=== PATIENT | female | born 1955 | race Caucasian/White ===

== ENCOUNTER 2021-12-03 09:48 | Outpatient (CLI) | payer BC, SELFPAY ==
[2021-12-03 10:00] LABS: Albumin* 4.2 g/dL (3.3-5.0)
[2021-12-03 10:01] LABS: Chloride* 106 mmol/L (96-114); Potassium* 4.2 mmol/L (3.6-5.1); Sodium* 140 mmol/L (135-149)
[2021-12-03 10:03] LABS: Bilirubin Total* 1.2 mg/dL (0.1-1.5); Carbon Dioxide* 30 mmol/L (20-32); Cholesterol* 170 mg/dL (90-199); Creatinine* 0.7 mg/dL (0.5-1.5); Estimated Glomerular Filt Rate 97 ml/min
[2021-12-03 10:04] LABS: Alanine Aminotransferase* 23 U/L (4-35); Alkaline Phosphatase* 141 U/L (40-150); Aspartate Amino Transferase* 22 U/L (12-35); Blood Urea Nitrogen* 13 mg/dL (7-30); Calcium* 9.2 mg/dL (8.4-10.6); Glucose* 97 mg/dL (60-115); HDL Cholesterol* 52 mg/dL (>=50); LDL Cholesterol Calculated 91 mg/dL (<100); Triglycerides* 133 mg/dL (40-149)
== END 2021-12-03 09:49 | disposition home or self-care (01) ==
PROVIDERS: PCP Family Medicine; Visit Provider Family Medicine
DX: I10 Essential (primary) hypertension (principal); E78.5 Hyperlipidemia, unspecified
CPT/HCPCS: 80053; 80061

== ENCOUNTER 2022-08-31 07:33 | Outpatient (CLI) | payer BC, SELFPAY ==
--- NOTE | 2022-08-31 07:45 | CRLHL7_ITS ---
For Patients: As a result of the Cures Act, medical imaging exams and procedure reports are released immediately into your electronic medical record. You may view this report before your referring provider. If you have questions, please contact your health care provider. BILATERAL SCREENING MAMMOGRAM WITH COMPUTER-AIDED DETECTION AND TOMOSYNTHESIS TECHNIQUE: CC and MLO views were obtained. These mammographic images have been obtained using full-field digital technique. These mammographic images were interpreted with the benefit of computer-aided detection. Breast Tomosynthesis was used in this interpretation. COMPARISON FILM: 10/17/20, 06/29/18, 04/27/17. FINDINGS: There are scattered areas of fibroglandular density IMPRESSION: There is no radiographic evidence for malignancy. ASSESSMENT: BI-RADS Category 1: Negative RECOMMENDATION: Routine screening mammogram in 1 year. A lay language report of this examination will be provided to the patient. Osmar May M.D. Diagnostic Radiologist [email or web address] NEAL/kristyn / be/Dictated by: Osmar May MD @ 08/31/2022 8:51:00 AM (Electronically Signed)
== END 2022-08-31 07:34 | disposition home or self-care (01) ==
LOC: MAMMO 07:34
PROVIDERS: PCP Family Medicine; Visit Provider Family Medicine
DX: Z12.31 Encounter for screening mammogram for malignant neoplasm of breast (principal)
CPT/HCPCS: 77063; 77067

== ENCOUNTER 2023-07-27 07:28 | Outpatient (CLI) | payer MEDICARE, OTHER, SELFPAY ==
--- OUTSIDE RECORDS SUMMARY | 2023-08-16 16:39 | XMS_ITS | Clinical Summary ---
Author Organization [employer] & [facility] Address [place], [place] [address] Care Team Providers Care Pattern Drafter Name Role Phone Kimberly Valera MD Primary Care Provider + Allergies No known active allergies Medications Medication Sig Dispensed Refills Start Date End Date Status amLODIPine (NORVASC) 5 mg tablet Take 1 tablet by mouth once daily. 06/08/2015 Active pravastatin (PRAVACHOL) 40 mg tablet Take 1 tablet by mouth once daily with evening meal. 06/17/2015 Active Active Problems Problem Noted Date Diagnosed Date Family history of early CAD 12/11/2016 Familial hypercholesterolemia 12/11/2016 Bilateral kidney stones 07/03/2015 Adjustment disorder with anxiety 07/28/2013 Encounters Date Type Department Care Team Description 07/29/2023 Lab Requisition [facility] [phone] Kimberly Valera MD from Last 3 Months Social History Tobacco Use Types Packs/Day Years Used Date Smoking Tobacco: Former Tobacco Cessation:Counseling Given: Yes Comments:just in highschool Alcohol Use Standard Drinks/Week Comments Yes 0 (1 standard drink = 0.6 oz pur e alcohol) less than occasional Sex and Gender Information Value Date Recorded Sex Assigned at Not on file Gender Identity Not on file Sexual Orientation Not on file Obstetrics History Last Filed Vital Signs Vital Sign Reading Time Taken Comments Blood Pressure 116/72 12/11/2016 2:40 PM CDT Pulse 90 12/11/2016 2:40 PM CDT Temperature 36.7 ??C (98.1 ??F) 12/11/2016 2:40 PM CD T Respiratory Rate 14 12/11/2016 2:40 PM CDT Oxygen Saturation 97% 12/11/2016 2:40 PM CDT Inhaled Oxygen Concentration - - Weight 64.4 kg (141 lb 15.6 oz) 12/11/2016 2:40 PM CDT Height 161 cm (5' 3.39) 12/11/2016 2:40 PM CDT Body Mass Index 24.84 12/11/2016 2:40 PM CDT Plan of Treatment Health Maintenance Due Date Last Done Comments Tdap 1968 Depression screening for age 12+ 1969 HIV for age 15-65 1972 Hepatitis C screening for ag e 18-79 09/06/1975 Tetanus booster 1977 Colonoscopy through age 75 2002 Lipids for age 45-75 2002 Mammogram for age 45-75 2002 Zoster (shingles) series for age 50+ (1 of 2) 09/06/2007 BMI (ht and wt on same day) for age 18+ 12/11/2017 12/11/2016, 12/16/2015, 10/09/2015, Additional history exists DEXA/DXA scan for age 65+ 2022 Pneumococcal series for age 65+ (1 of 1 - PCV) 2022 COVID-19 vaccine series (3 - 2022-24 season) 2022 07/08/2020, 06/12/2020 Influenza for age 65+ 10/31/2023 Pap test for age 21-65 07/28/2026 , 07/29/2023, 06/29/2018, Additional history exists Procedures Procedure Name Priority Date/Time Associated Diagnosis Comments LAB TRACKING EVENT Routine 07/29/2023 7: 55 AM CDT ANIMAL PATHOLOGY TEACHER THIN PREP PAP SCREEN IMAGED Routine 07/29/2023 7:55 AM CDT HPV THIN PREP Routine 07/29/2023 7:55 AM CDT from Last 3 Months Results * LAB TRACKING EVENT (07/29/2023 7:55 AM CDT) Other (Other) Client Collect / Unknown 07/29/2023 7:55 AM CDT 07/29/2023 3:14 PM CDT Kimberly Valera MD LAB BILL ONLY [facility] [address] [place] [address], * ANIMAL PATHOLOGY TEACHER THIN PREP PAP SCREEN IMAGED (07/29/2023 7:55 AM CDT) Case Report Gynecologic Cytology Report ? Case: [id number] ? Authorizing Provider: ??Kimberly Valera MD ??Collected: ? 07/29/2023 0755 ? Ordering Location: ? [facility] ?Received: ?07/30/2023 1035 ? First Screen: ?Erin Lopez ? Specimen: ?ANIMAL PATHOLOGY TEACHER ThinPrep Vial Screening, Cervical/Vaginal ? 08/09/2023 6:36 PM CDT [facility] INTERPRETATION/ RESULT NEGATIVE FOR INTRAEPITHELIAL LESION OR MALIGNANCY (NIL) (none) 08/09/2023 6:36 PM CDT [facility] IMEN ADEQUACY Satisfactory for evaluation No endocervical component seen 08/09/2023 6:36 PM CDT [facility] HPV REQUEST HPV and PAP 08/09/2023 6:36 PM CDT [facility] Date of LMP 08/09/2023 6:36 PM CDT [facility] Comment:Unknown Last Pap Date 06/29/2018 08/09/2023 6:36 PM CDT [facility] Last Pap Result NIL 6:36 PM CDT [facility] Abnormal Pap or [place] Bx in last 5 years No 08/09/2023 6:[address] [facility] Menstrual Status Postmenopausal 08/09/2023 6:[address] [facility] [place] Bx Done Today No 08/09/2023 6:[address] [facility] Additional Information 08/09/2023 6:36 PM CDT [facility] Comment: Interpreted at [facility] - [address] [facility] [address], [place] [address] Automated Review Successful 08/09/2023 6:[address] [facility] Comment:Specimen processed s uccessfully by automated price analyst device, ThinPrep Imaging System, [employer] ANCILLARY TESTING ANIMAL PATHOLOGY TEACHER HPV Ordered, Please see separate report 08/09/2023 6:[address] [facility] Note The pap test is a screening technique, not a diagnostic procedure. It is used primarily to screen for squamous cancers and precursor lesions. Published studies have shown that it is subject to both false negative and false positive results. The pap test should not be used as the sole means to diagnose or exclude pre-malignant and malignant lesions. 08/09/2023 6:[address] [facility] Other (Cervical/Vagina l) 07/29/2023 7:55 AM CDT 07/30/2023 10:35 AM CDT Kimberly Valera MD PATHOLOGY/CYTOLO GY [facility] [address] [place] [address], * HPV HIGH RISK (07/29/2023 7:55 AM CDT) TYPE 16 Negative Negative 08/03/2023 8:10 AM CDT [facility] TYPE 18 Negative Negative 08/03/2023 8:10 AM CDT [facility] OTHER HIGH RISK TYPES Negative Negative 08/03/2023 8:10 AM CDT [facility] Other (Cervical/Vagina l) 07/29/2023 7:55 AM CDT 07/30/2023 10:35 AM CDT Narrative [facility] - 08/03/2023 8:10 AM CDT HPV types 16, 18, 31, 33, 35, 39, 45, 51, 52, 56, 58, 59, 66 and 68 DNA were undetectable or below the pre-set threshold. Methodology: [employer] Ren[employer] 4800 HPV Test Kimberly Valera MD MICROBIOLOGY [facility] [address] [place] [id number], from Last 3 Months Care Teams Pattern Drafter Relationship Specialty Start Date End Date Kimberly Valera MD [address] [place] [address] PCP - General Family Practice 07/03/15
== END 2023-07-27 07:29 | disposition home or self-care (01) ==
LOC: NFLDREF 08-16 16:37
PROVIDERS: PCP Family Medicine; Referring Provider Family Medicine; Visit Provider Family Medicine
DX: I10 Essential (primary) hypertension (principal); E78.5 Hyperlipidemia, unspecified
CPT/HCPCS: 80053; 80061

== ENCOUNTER 2023-08-18 13:43 | Outpatient (CLI) | payer MEDICARE, OTHER, SELFPAY ==
--- OUTSIDE RECORDS SUMMARY | 2023-08-18 13:47 | XMS_ITS | Clinical Summary ---
Author Organization [email or web address] [facility] & [facility] Address [place], [place] [address] Care Team Providers Care Overhead Foreman Name Role Phone Kimberly Valera MD Primary [...] Department Care Team Description 07/29/2023 Lab Requisition [facility] [phone] Kimberly Valera MD from Last 3 Months [...] EVENT Routine 07/29/2023 7: 55 AM CDT FILL PLANT OPERATOR THIN PREP PAP SCREEN IMAGED Routine 07/29/2023 7:55 AM CDT HPV THIN PREP Routine 07/29/2023 7:55 AM CDT from Last 3 Months Results * LAB TRACKING EVENT (07/29/2023 7:55 AM CDT) Other (Other) Client Collect / Unknown 07/29/2023 7:55 AM CDT 07/29/2023 3:14 PM CDT Kimberly Valera MD LAB BILL ONLY [facility] [address] [place] [address], * FILL PLANT OPERATOR THIN PREP PAP SCREEN IMAGED (07/29/2023 7:55 AM CDT) Case Report Gynecologic Cytology Report ? Case: [id number] ? Authorizing Provider: ??Kimberly Valera MD ??Collected: ? 07/29/2023 0755 ? Ordering Location: ? [facility] ?Received: ?07/30/2023 1035 ? First Screen: ?Erin Lopez ? Specimen: ?FILL PLANT OPERATOR ThinPrep Vial Screening, Cervical/Vaginal ? 08/09/2023 6:36 PM CDT [facility] INTERPRETATION/ RESULT NEGATIVE FOR INTRAEPITHELIAL LESION OR MALIGNANCY (NIL) (none) 08/09/2023 6:36 PM CDT [facility] IMEN ADEQUACY Satisfactory for evaluation No endocervical component seen 08/09/2023 6:36 PM CDT [facility] HPV REQUEST HPV and PAP 08/09/2023 6:36 PM CDT [facility] Date of LMP 08/09/2023 6:36 PM CDT [facility] Comment:Unknown Last Pap Date 06/29/2018 08/09/2023 6:36 PM CDT [facility] Last Pap Result NIL 6:36 PM CDT [facility] Abnormal Pap or [place] Bx in last 5 years No 08/09/2023 6:36 PM CDT [facility] Menstrual Status Postmenopausal 08/09/2023 6:36 PM CDT [facility] [place] Bx Done Today No 08/09/2023 6:36 PM CDT [facility] Additional Information 08/09/2023 6:36 PM CDT [facility] Comment: Interpreted at [facility] - [address] [facility] [address], [place] [address] Automated Review Successful 08/09/2023 6:36 PM CDT [facility] Comment:Specimen processed s uccessfully by automated waterworks supervisor device, ThinPrep Imaging System, [employer] ANCILLARY TESTING FILL PLANT OPERATOR HPV Ordered, Please see separate report 08/09/2023 6:36 PM CDT [facility] Note The pap test is a [...] and malignant lesions. 08/09/2023 6:36 PM CDT [facility] Other (Cervical/Vagina l) 07/29/2023 7:55 AM CDT 07/30/2023 10:35 AM CDT Kimberly Valera MD PATHOLOGY/CYTOLO GY [facility] [address] [place] [address], * HPV HIGH RISK (07/29/2023 7:55 AM CDT) TYPE 16 Negative Negative 08/03/2023 8:10 AM CDT [facility] TYPE 18 Negative Negative 08/03/2023 8:10 AM CDT [facility] OTHER HIGH RISK TYPES Negative Negative 08/03/2023 8:10 AM CDT [facility] Other (Cervical/Vagina l) 07/29/2023 7:55 AM CDT 07/30/2023 10:35 AM CDT Narrative [facility] - 08/03/2023 8:10 AM CDT HPV types 16, 18, 31, 33, 35, 39, 45, 51, 52, 56, 58, 59, 66 and 68 DNA were undetectable or below the pre-set threshold. Methodology: [employer] Renato 4800 HPV Test Kimberly Valera MD MICROBIOLOGY [facility] [address] [place] [id number], from Last 3 Months Care Teams Overhead Foreman Relationship Specialty Start Date End Date Kimberly Valera MD [address] [place] [address] PCP - General Family Practice 07/03/15
--- NOTE | 2023-08-18 14:00 | CRLHL7_ITS ---
For Patients: As a result of the Century Cures Act, medical imaging exams and procedure reports are released immediately into your electronic medical record. You may view this report before your referring provider. If you have questions, please contact your health care provider. DXA BONE MINERAL DENSITY STUDY Reason for exam: Asymptomatic menopausal state. Current height (in): 63. Weight (lb): 153. Menopause age: 50. Ethnicity: White. 1. Have you had a previous hip or vertebral fracture? No. 2. Have you had any fractures during your adult life which did not result from significant trauma (e.g., auto accident)? No. 3. Did either of your parents have a hip fracture? No. 4. Do you smoke? No. 5. Have you ever taken Glucocorticoids? No. 6. Do you have rheumatoid arthritis? No. 7. Do you have secondary osteoporosis? No. 8. Do you drink 3 or more alcoholic drinks per day? No. 9. Are you being treated for osteoporosis? No. 10. Have you ever taken any of the following medications: Actonel, Evista, Fosamax, Miacalcin, Reclast, Boniva, Forteo, HRT (i.e. estrogen/hormone therapy), Protelos, Prolia, Vitamin D, Calcium, other ??? please specify. ANSWER: No. 11. Do you have any of the following medical conditions: Anorexia or bulimia, asthma or emphysema, end stage renal disease, hyperparathyroidism, any seizure disorders, cancer, inflammatory bowel diseases, hysterectomy, other ??? please specify. ANSWER: No. 12. What was your maximum height (inches)? 63. 13. Do you perform weight bearing exercise regularly? No. 14. Do you regularly consume dairy products? Yes. 15. Do you drink caffeinated beverages? Yes. 16. At what age did your period start? 20. 17. Are you premenopausal? No. 18. How many full term pregnancies have you had? 2. 19. Have you ever missed your period for more than 6 months in a row (not including or menopause)? No. TECHNIQUE: Bone mineral density study was performed using the [employer]. FINDINGS: The results of the study expressed as bone mineral density (BMD) are as follows: Lumbar spine L1 to L4: BMD: 0.850 g/cm2. T-score: -1.8. Z-score: 0.0. Neck Left: BMD: 0.737 g/cm2. T-score: -1.0. Z-score: 0.5. Right: BMD: 0.779 g/cm2. T-score: -0.6. Z-score: 0.9. Total Left: BMD: 0.882 g/cm2. T-score: -0.5. Z-score: 0.8. Right: BMD: 0.894 g/cm2. T-score: -0.4. Z-score: 0.9. IMPRESSION: Osteopenia. *Comparison exams done prior to 07/2019 were performed on different unit, [employer]. FRAX 10-year Fracture Risk Major Osteoporotic Fracture: 8.1 percent Hip Fracture: 0.6 percent Reported Risk Factors: [place] () Neck BMD=0.737, BMI=27.1 Osmar May M.D. Diagnostic Radiologist [email or web address] SP/Dictated by: Osmar May MD @ 08/19/2023 10:52:00 AM (Electronically Signed)
== END 2023-08-18 13:44 | disposition home or self-care (01) ==
LOC: RAD 13:43
PROVIDERS: PCP Family Medicine; Visit Provider Family Medicine
DX: Z78.0 Asymptomatic menopausal state (principal); M85.89 Other specified disorders of bone density and structure, multiple sites
CPT/HCPCS: 77080

== ENCOUNTER 2023-11-15 07:54 | Outpatient (CLI) | payer MEDICARE, OTHER, SELFPAY ==
--- OUTSIDE RECORDS SUMMARY | 2023-11-15 07:56 | XMS_ITS | Clinical Summary ---
Author Organization [employer] & [facility] Address [place], [place] [address] Care Team Providers Care Green Promotions Specialist Name Role Phone Kimberly Valera MD Primary [...] stones 07/03/2015 Adjustment disorder with anxiety 07/28/2013 Social History Tobacco Use Types Packs/Day Years [...] 1968 Depression screening for age 12+ 1969 Hepatitis C screening for ag e 18-79 [...] COVID-19 vaccine series (3 - 2022-24 season) 2023 07/08/2020, 06/12/2020 Influenza for age 65+ 10/31/2023 Care Teams Green Promotions Specialist Relationship Specialty Start Date End Date Kimberly Valera MD [address] [place] [address] PCP - General Family Practice 07/03/15
== END 2023-11-15 07:55 | disposition home or self-care (01) ==
LOC: OP CLINIC 07:54
PROVIDERS: PCP Family Medicine; Visit Provider Surgery
DX: Z53.8 Procedure and treatment not carried out for other reasons (principal)

== ENCOUNTER 2023-12-07 07:53 | Outpatient (CLI) | payer MEDICARE, OTHER, SELFPAY ==
--- OUTSIDE RECORDS SUMMARY | 2023-12-07 07:55 | XMS_ITS | Clinical Summary ---
Author Organization [employer] & [facility] Address [place], [place] [address] Care Team Providers Care Edge Roller Name Role Phone Kimberly Valera MD Primary [...] 1 - PCV) 2022 COVID-19 vaccine series (2023-25 season) 2023 07/08/2020, 06/12/2020 Influenza for age 65+ 10/31/2023 Care Teams Edge Roller Relationship Specialty Start Date End Date Kimberly Valera MD [address] [place] [address] PCP - General Family Practice 07/03/15
--- NOTE | 2023-12-07 09:19 | W.ANESCHARGE ---
Anesthesia Charges Start Date/Time Anesthesia Start Date: 12/07/23 Anesthesia Start Time: 09:34 Stop Date/Time Anesthesia Stop Date: 12/07/23 Anesthesia Stop Time: 10:04
--- NOTE | 2023-12-07 10:06 | W.ANESCHARGE ---
Anesthesia Charges Start Date/Time Anesthesia Start Date: 12/07/23 Anesthesia Start Time: 09:34 Stop Date/Time Anesthesia Stop Date: 12/07/23 Anesthesia Stop Time: 10:04
== END 2023-12-07 07:54 | disposition home or self-care (01) ==
LOC: OP CLINIC 07:54
PROVIDERS: PCP Family Medicine; Visit Provider Surgery
DX: Z12.11 Encounter for screening for malignant neoplasm of colon (principal); D12.3 Benign neoplasm of transverse colon
CPT/HCPCS: 00811; 45385; 88305; J2704

== ENCOUNTER 2024-05-22 10:30 | Outpatient (CLI) | payer MEDICARE, OTHER, SELFPAY ==
--- NOTE | 2024-05-22 10:45 | CRLHL7_ITS ---
For Patients: As a result of the Century Cures Act, medical imaging exams and procedure reports are released immediately into your electronic medical record. You may view this report before your referring provider. If you have questions, please contact your health care provider. BILATERAL SCREENING MAMMOGRAM WITH COMPUTER-AIDED DETECTION AND TOMOSYNTHESIS TECHNIQUE: CC and MLO views were obtained. These mammographic images have been obtained using full-field digital technique. These mammographic images were interpreted with the benefit of computer-aided detection. Breast Tomosynthesis was used in this interpretation. COMPARISON FILM: 08/31/22, 10/17/20, 06/29/18. FINDINGS: The breasts are heterogeneously dense, which may obscure small masses IMPRESSION: There is no radiographic evidence for malignancy. ASSESSMENT: BI-RADS Category 1: Negative RECOMMENDATION: Routine screening mammogram in 1 year. A lay language report of this examination will be provided to the patient. Osmar May M.D. Diagnostic Radiologist [email or web address] NEAL/trixie / bM/Dictated by: Osmar May MD @ 05/29/2024 10:37:00 AM (Electronically Signed)
== END 2024-05-22 10:31 | disposition home or self-care (01) ==
LOC: MAMMO 10:30
PROVIDERS: PCP Family Medicine; Visit Provider Family Medicine
DX: Z12.31 Encounter for screening mammogram for malignant neoplasm of breast (principal); R92.333 Mammographic heterogeneous density, bilateral breasts
CPT/HCPCS: 77063; 77067

== ENCOUNTER 2024-07-20 07:32 | Outpatient (CLI) | payer MEDICARE, OTHER, SELFPAY | END 2024-07-20 07:33 | disposition home or self-care (01) | LOC: NFLDREF 07-23 20:04 | PROVIDERS: PCP Family Medicine; Referring Provider Family Medicine; Visit Provider Family Medicine | DX: E78.5 Hyperlipidemia, unspecified (principal); I10 Essential (primary) hypertension | CPT/HCPCS: 80053; 80061 ==